=== PATIENT | female | born 1995 | race African-American/Black ===

== ENCOUNTER 2018-04-04 23:25 | Emergency (ER) | payer OTHER, SELFPAY ==
--- NOTE | 2018-04-04 23:33 | ED_ITS ---
HPI - General Adult General Chief complaint: Toxicology Problem Stated complaint: took a drug (MDMA) and doesnt feel well Time Seen by Provider: 04/04/18 23:32 Source: patient Mode of arrival: ambulatory Limitations: no limitations History of Present Illness HPI narrative: Patient is a 22-year-old female here for evaluations of shortness of breath and anxiety. She states that prior to arrival she took 1.5 doses of ecstasy. She states that she has never taken this drug in the past. She denies any other ingestions. Has never had these symptoms in the past. She states that off and on she has had symptoms of shortness of breath and palpitations and anxiety. No chest pain Related Data Home Medications Medication Instructions Recorded Confirmed No Known Home Medications 04/05/18 04/05/18 Allergies Allergy/AdvReac Type Severity Reaction Status Date / Time No Known Drug Allergies Allergy Verified 04/05/18 00:27 Review of Systems Constitutional Denies chills, Denies fatigue and Denies fever(s) Cardiovascular Denies chest pain, Denies syncope, Denies edema and Reports dyspnea Respiratory Reports dyspnea, Denies stridor and Denies wheezing Gastrointestinal Gastrointestinal: Denies abdominal pain, Denies change in stool character, Denies diarrhea, Denies nausea and Denies vomiting Genitourinary Denies dysuria Musculoskeletal Denies myalgias and Denies arthralgias Integumentary/Breasts Denies lesions and Denies rash Neurologic Denies confusion and Denies syncope Psychiatric Denies confusion Endocrine Denies fatigue Hematologic/Lymphatic Denies easy bleeding and Denies easy bruising Allergic/Immunologic Denies wheezing FORMERLY [facility], [facility] Medical History Healthy adult (Acute) Surgical History No pertinent past surgical history (Acute) Social History Smoking Status: Never smoker Exam Initial Vital Signs Initial Vital Signs: Vital Signs Temperature 98.8 F 04/04/18 23:35 Pulse Rate 85 04/04/18 23:35 Respiratory Rate 18 04/04/18 23:35 Blood Pressure 132/83 04/04/18 23:35 Pulse Oximetry 98 04/04/18 23:35 Const General: cooperative, healthy appearing, comfortable, well developed, well groomed, No acute distress and No anxious Orientation: alert, awake and oriented x3 HENMT Head: normal to inspection and normocephalic Resp Effort & Inspection: normal respiratory effort Auscultation: clear to auscultation bilaterally Cardio Rate: regular rate Rhythm: regular rhythm Pulses: radial pulses present Skin General: no rashes or lesions noted Lesions: no lesions Rashes: no rashes Neuro General: alert, awake and oriented x3 Cognition: normal cognition Speech: speech normal Extrem General: normal to inspection and capillary refill normal Psych Appearance: grossly normal and well kempt Mood: congruent mood Affect: normal affect Attitude: cooperative Thought Content: normal Course Orders Ordered: ED Orders 04/04/18 23:34 EKG-12 Lead Stat Vital Signs - 8 hr 04/04/18 23:35 Temperature 98.8 F Pulse Rate 85 Respiratory Rate 18 Blood Pressure 132/83 Pulse Oximetry 98 Medical Decision Making ECG Data Attestation: I personally reviewed and interpreted this ECG as follows: Prior ECG tracings: not available for review Interpretation: Sinus rhythm Ventricular rate 82 Sinus arrhythmia Normal axis Normal QRS Normal QTC MDM Narrative Medical decision making narrative: I feel that the patient's symptoms today are secondary to the drug use. She did have an episode here in the emergency department however never became tachypneic, never hypoxic. EKG is unremarkable. Hold on further workup for now. Patient was given return precautions. She expressed understanding and agreement with plan Discharge Plan Departure Patient Disposition: Home Clinical Impression: Drug use, Shortness of breath Instructions: DI for Drug Abuse and Drug Addiction Activity Restrictions/Additional Instructions: Recommend that you consider quitting the Ecstasy use. Call your primary care doctor for follow-up. Return to the emergency department for any new or worsening symptoms Prescriptions: No Action No Known Home Medications RF: 0
[2018-04-04 23:35] VITALS: BP 132/83; PULSE 85; RESP 18; TEMP 37.1; O2SAT 98; BMI 21.7
[2018-04-05 00:15] VITALS: BP 116/63; PULSE 81; RESP 16; O2SAT 99
--- NOTE | 2018-04-05 00:28 | PC.NURSE ---
Pt advised to breathe through a bag when hyperventilates to avoid tingling/numbness to fingertips, around the mouth and verbalized the understanding. Pt has been hydrating with water for dry mouth w/o N-V
[2018-04-05 00:45] VITALS: BP 117/73; PULSE 79; RESP 16; O2SAT 99
[2018-04-05 02:15] VITALS: BP 117/79; PULSE 73; RESP 16; O2SAT 98
== END 2018-04-05 02:07 | disposition home or self-care (01) ==
PROVIDERS: Emergency Provider Emergency Medicine
DX: F16.10 Hallucinogen abuse, uncomplicated (principal); R00.2 Palpitations; R06.02 Shortness of breath
CPT/HCPCS: 93005; 99282; 99283